=== PATIENT | male | born 1970 | race Caucasian/White ===

== ENCOUNTER → 2021-03-26 | Outpatient (CLI) | payer OTHER | LOC: KOH-I 10:17 | DX: S46.211A Strain of muscle, fascia and tendon of other parts of biceps, right arm, initial encounter (principal) | CPT/HCPCS: 73221 ==

== ENCOUNTER → 2021-04-16 | Outpatient (CLI) | payer OTHER ==
[~2021-04-16] MED LIST: ADMELOG; CLARITIN10 M2 PO; CLONIDINE HCL0.1 MG PO; FLUTICASONE; IBU800 MG PO; LANTUS; LEVOTHYROXINE200 MC2 PO; LEVOTHYROXINE50 MC1 PO; LEVOTHYROXINE75 MC1 PO; LIPITOR40 MG PO; LISINOPRIL-HCT1 EACH PO; LO-DOSE ASPIRIN81 MG PO; METOPROLOL TART25 MG PO; MULTI-VITAMIN1 EACH PO; NORVASC10 MG PO; OMEGA-3 ACID ETH1 GM PO; PLAVIX 75 MG TA75 MG PO; POTASSIUM CHLO10 MEQ PO; REPATHA; VENTOLIN
[2021-04-16 14:11] LABS: BUN/CREATININE RATIO 11 (0-10)
== END ==
LOC: OPSV2 12:00
PROVIDERS: Orthopaedic Surgery
DX: Z01.818 Encounter for other preprocedural examination (principal); S46.211A Strain of muscle, fascia and tendon of other parts of biceps, right arm, initial encounter
CPT/HCPCS: 80048; 83036; 93005